=== PATIENT | female | born 1980 | race Caucasian/White ===

== ENCOUNTER 2020-10-03 17:22 | Outpatient (CLI) | payer BC, SELFPAY ==
--- NOTE | ~2020-10-03 | XR_ITS ---
EXAMINATION: XR lumbar spine 2-3V DATE: 10/03/2020 17:48 INDICATION: Low back pain TECHNIQUE: Anteroposterior and lateral views of the lumbar spine, and cone-down lateral view of the l umbosacral junction were obtained. COMPARISON: None. FINDINGS: There is no fracture, dislocation, or subluxation. The vertebral body heights are maintaine d. There is mild loss of intervertebral disc space height at L1-2, L2-3, L4-5, and L5-S1. Small degen erative osteophytes project from the anterior endplates of multiple vertebral bodies. A large volume of colonic stool is present. IMPRESSION: 1. Mild lumbar spondylosis. Reviewed, dictated and finalized at location A. IMPRESSION: 1. Mild lumbar spondylosis.
--- NOTE | ~2020-10-03 | XR_ITS ---
XR sacroiliac joints min 3V 10/03/2020 17:48 Indication: Low back pain Procedure: 6 view sacroiliac joints Comparison: No prior studies for comparison. Findings: Sacroiliac joints are symmetric without significant degenerative change, ankylosis or erosi on. Sacral foramen are symmetric. Surrounding osseous structures are unremarkable. Impression: 1: No significant abnormality of the sacroiliac joints. Reviewed, dictated and finalized at location A. Impression: 1: No significant abnormality of the sacroiliac joints.
== END 2020-10-03 17:23 ==
PROVIDERS: PCP Emergency Medicine; Visit Provider Emergency Medicine
DX: M47.896 Other spondylosis, lumbar region (principal)
CPT/HCPCS: 72100; 72202